=== PATIENT | female | born 1985 | race Two or more races ===

== ENCOUNTER 2020-04-02 09:50 | Inpatient (IN) | payer OTHER ==
[2020-04-02] MEDS ORDERED: CITRIC ACID/SODIUM CITRATE 30 ML UNIT-DOSE CUP PO ONE (10:20)
[2020-04-02] MEDS ORDERED: ELECTROLYTE-148 SOLN 500 ML IV ONE (10:20)
[2020-04-02] MEDS ORDERED: ELECTROLYTE-148 SOLN 1,000 ML IV SCH (10:30)
[2020-04-02 12:24] VITALS: BMI 31.5
[2020-04-02] MEDS ORDERED: morphine SULFATE/PF 0.5 MG/ML (2cc Syringe - QUVA) ONE (12:51)
[2020-04-02] MEDS ORDERED: ceFAZolin SODIUM 1 GM VIAL ONE ×2 (13:05)
[2020-04-02] MEDS ORDERED: OXYTOCIN 10 UNITS/ML VIAL ONE ×4 (13:06)
[2020-04-02] MEDS ORDERED: oxyCODONE HCL 5 MG TABLET PO PRN (13:44)
[2020-04-02] MEDS ORDERED: WITCH HAZEL 50% (TUCKS) 40 PAD/JAR PAD TP PRN (13:44)
[2020-04-02] MEDS ORDERED: BENZOCAINE 28 GM HEMORRHOIDAL OINTMENT TP PRN (13:44)
[2020-04-02] MEDS ORDERED: BENZOCAINE 20% 57 GM BOTTLE TP PRN (13:44)
[2020-04-02] MEDS ORDERED: METHYLERGONOVINE MALEATE 0.2 MG/1 ML AMP IM PRN (13:44)
[2020-04-02] MEDS ORDERED: SENNOSIDES/DOCUSATE COMBO (SENNA PLUS) TABLET (UD) PO PRN (13:44)
[2020-04-02] MEDS ORDERED: OXYTOCIN 20 UNITS in 0.9% NS 20 UNIT/1,000 ML INFUS.BAG IV SCH (13:45)
[2020-04-02] MEDS ORDERED: OXYTOCIN 20 UNITS in 0.9% NS 20 UNIT/1,000 ML INFUS.BAG IV ONE (15:20)
[2020-04-02] MEDS: IBUPROFEN 800 MG/8 ML IJ IVPB PRN (17:39)
[2020-04-02] MEDS: FERROUS SO4 325 MG TABLET (FP) PO SCH (21:32)
[2020-04-03] MEDS: IBUPROFEN 800 MG/8 ML IJ IVPB PRN ×2 (05:19→11:15)
[2020-04-03] MEDS: SIMETHICONE 80 MG TAB.CHEW (FP) PO PRN ×2 (05:20→17:40)
[2020-04-03 08:36] LABS: BASO % 0.2 % (0-2.0); EOS % 0.4 % (0-4.5); HEMATOCRIT 28.3 % (32.4-45.2); HEMOGLOBIN 9.6 GM/dL (10.7-15.3); LYMPH % 6.7 % (8-40); MCH 30.5 pg (25.7-33.7); MCHC 33.8 g/dl (32.0-36.0); MEAN CELL VOLUME 90.2 fl (80-96); MEAN PLT VOLUME 8.9 fl (7.5-11.1); MONO % 8.4 % (3.8-10.2); NEUT % 84.3 % (42.8-82.8); PLATELET COUNT 218 K/MM3 (134-434); RBC 3.14 M/mm3 (3.60-5.2); RDW 13.9 % (11.6-15.6); WHITE BLOOD COUNT 16.7 K/mm3 (4.0-10.0)
[2020-04-03] MEDS: PRENATAL VITAMINS W/ FOLIC ACID TABLET (FP) PO SCH (11:07)
[2020-04-03] MEDS: FERROUS SO4 325 MG TABLET (FP) PO SCH ×2 (11:07→23:14)
[2020-04-03] MEDS ORDERED: BISACODYL 10 MG SUPP.RECT RC PRN (13:44)
[2020-04-03] MEDS: ACETAMINOPHEN 325 MG TABLET (FP) PO PRN (20:43)
[2020-04-03] MEDS: IBUPROFEN 600 MG TABLET (FP) PO PRN (20:43)
[2020-04-04] MEDS: PRENATAL VITAMINS W/ FOLIC ACID TABLET (FP) PO SCH (09:33)
[2020-04-04] MEDS: SIMETHICONE 80 MG TAB.CHEW (FP) PO PRN (09:33)
[2020-04-04] MEDS: FERROUS SO4 325 MG TABLET (FP) PO SCH (09:33)
[2020-04-04] MEDS: IBUPROFEN 600 MG TABLET (FP) PO PRN (09:34)
[2020-04-04] MEDS: ACETAMINOPHEN 325 MG TABLET (FP) PO PRN (09:34)
[2020-04-04 12:08] VITALS: BP 120/73; PULSE 85; TEMP 98.8
== END 2020-04-04 15:45 | disposition home or self-care (01) | DRG 540 ==
LOC: JLDR 09:50 → J3W 16:00
PROVIDERS: ADMIT Obstetrics & Gynecology; ATTEND Obstetrics & Gynecology
PROC: 10D00Z1 Extraction of Products of Conception, Low, Open Approach (ICD-10-PCS; principal; 2020-04-02)
PROC: 0UB70ZZ Excision of Bilateral Fallopian Tubes, Open Approach (ICD-10-PCS; 2020-04-02)
DX: O98.52 Other viral diseases complicating childbirth (principal); U07.1 COVID-19; O34.211 Maternal care for low transverse scar from previous cesarean delivery; N85.8 Other specified noninflammatory disorders of uterus; Z3A.39 39 weeks gestation of pregnancy; Z30.2 Encounter for sterilization; Z37.0 Single live birth
CPT/HCPCS: 36415; 80053; 85025; 85610; 86850; 86900; 86901; C9803; U0003

== ENCOUNTER 2021-06-05 12:18 | Emergency (ER) | payer OTHER ==
[2021-06-05 12:30] VITALS: BMI 27.3
[2021-06-05] MEDS ORDERED: METOCLOPRAMIDE HCL INJECTION 10 MG/2 ML VIAL IVPB ONE (13:16)
[2021-06-05] MEDS ORDERED: ACETAMINOPHEN 1000 MG/100 ML BAG IVPB ONE (13:16)
[2021-06-05] MEDS ORDERED: METOCLOPRAMIDE HCL INJECTION 10 MG/2 ML VIAL ONE (13:25)
[2021-06-05] MEDS ORDERED: ACETAMINOPHEN INJECTION 100 ML IVPB ONE (13:25)
[2021-06-05] MEDS ORDERED: SODIUM CHLORIDE 0.9% 500 ML INFUS.BAG IV ONE (13:35)
[2021-06-05] MEDS ORDERED: diazePAM 5 MG TABLET PO ONE (14:05)
[2021-06-05] MEDS ORDERED: diazePAM 5 MG TABLET ONE (14:54)
[2021-06-05 15:03] LABS: BASO % 0.9 % (0-2.0); EOS % 4.4 % (0-4.5); HEMOGLOBIN 12.1 GM/dL (10.7-15.3); LYMPH % 26.8 % (8-40); MCH 29.5 pg (25.7-33.7); MCHC 33.6 g/dl (32.0-36.0); MEAN CELL VOLUME 87.7 fl (80-96); MEAN PLT VOLUME 8.5 fl (7.5-11.1); NEUT % 61.9 % (42.8-82.8); PLATELET COUNT 315 10^3/uL (134-434); RBC 4.11 M/mm3 (3.60-5.2); RDW 13.2 % (11.6-15.6); WHITE BLOOD COUNT 8.8 K/mm3 (4.0-10.0)
[2021-06-05 15:09] LABS: EPI CELLS >36 /uL (0-25.1); HYALINE CASTS 9 /uL (0-3.1); PH,URINE 6.5 (5.0-8.0); URINE APPEARANCE CLOUDY; URINE BACTERIA 2258 /uL (0-1359); URINE BILIRUBIN NEGATIVE (NEGATIVE); URINE COLOR YELLOW; URINE GLUCOSE (UA) NEGATIVE (NEGATIVE); URINE KETONE NEGATIVE (NEGATIVE); URINE LEUK ESTERASE TRACE (NEGATIVE); URINE NITRITE NEGATIVE (NEGATIVE); URINE PROTEIN NEGATIVE (NEGATIVE); URINE RBC 30 /uL (0-23.9); URINE WBC 47 /uL (0-25.8)
[2021-06-05 15:17] LABS: CALCIUM 8.6 mg/dL (8.5-10.1)
[2021-06-05 15:19] LABS: ALBUMIN 3.7 g/dl (3.4-5.0); BLOOD UREA NITROGEN 13.2 mg/dL (7-18)
[2021-06-05 15:21] LABS: CREATININE 0.7 mg/dL (0.55-1.3)
[2021-06-05 15:23] LABS: BILIRUBIN,TOTAL 0.3 mg/dL (0.2-1); TOT PROT 7.5 g/dl (6.4-8.2)
[2021-06-05 15:40] LABS: ERYTHROCYTE SEDIMENTATION RATE 42 mm/hr (0-20)
[2021-06-05 17:07] VITALS: BP 111/69; PULSE 78; TEMP 97.9
== END 2021-06-05 18:02 | disposition home or self-care (01) ==
LOC: JER 12:18
PROC: 3E033GC Introduction of Other Therapeutic Substance into Peripheral Vein, Percutaneous Approach (ICD-10-PCS; principal; 2021-06-05)
DX: N39.0 Urinary tract infection, site not specified (principal); M54.2 Cervicalgia
CPT/HCPCS: 36415; 70450-TC; 72125-TC; 80053; 81003; 84703; 85025; 85651; 86140; 87086; 99285-25